=== PATIENT | male | born 1995 | race Caucasian/White ===

== ENCOUNTER 2020-01-02 14:20 | Emergency (ER) | payer OTHER ==
[~2020-01-02] VITALS: Ht 182.9 cm; Wt 81.6 kg
[2020-01-02 14:20] VITALS: BP 143/85
--- NOTE | 2020-01-02 14:21 | NUR ---
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
[2020-01-02] MEDS ORDERED: NALOXONE PFS 2 MG/2 ML SYR ONE (14:22)
[2020-01-02 14:25] VITALS: BP 186/81
--- NOTE | 2020-01-02 14:25 | NUR ---
PT BIB FRIEND FOR OVERDOSE/ALOC. PT WAS FOUND BLUE COLOR ON SKIN AND UNRESPONSIVE OUTSIDE OF THE ER. BIB VIA WC AND POSITION PT IN THE BED IMMEDIATELY. DR. ONTIVEROS PRESENTES TO THE PT RIGHT AWAY AFTER PT WAS BROUGHT IN. 10L OXYGEN VIA NON-REBREATHER MASK GIVEN TO PT. PLACED PT ON MONITOR. PT IS UNRESPONSIVE TO STERNAL RUB OR PAIN STUMILI. SHALLOW BREATHING AND PIN-POINT PUPILS NOTICED; VSS; PATIENT POSITIONED FOR COMFORT; HOB ELEVATED; BEDRAILS UP X2; BED DOWN. ER MD MADE AWARE OF PT STATUS.
--- NOTE | 2020-01-02 14:30 | NUR ---
RESPONSIVE TO NAME BREATH SOUNDS CLEAR GOOD CHEST RISE AND AERATION THROUGHOUT BILATERAL LUNG GONZALEZ NO UPPER AIRWAY SNORE NOTED AT 1421 SATURATION 100% NRB AT 15 LPM HR 100 RR 32
--- NOTE | 2020-01-02 14:39 | NUR ---
PT IS FULLY AWAKE. CAN ANSWER QUESTIONS AND FOLLOW COMMANDS AT THIS TIME.
[2020-01-02 15:07] LABS: BASOPHILS # (AUTO) 0.1 K/uL (0.00-0.22); BASOPHILS % (AUTO) 0.6 % (0.0-2.0); EOSINOPHILS # (AUTO) 0.1 K/uL (0-0.4); HEMATOCRIT 43.6 % (36-52); HEMOGLOBIN 14.5 g/dL (12.0-18.0); LYMPHOCYTES # (AUTO) 4.1 K/uL (2.0-11.5); MEAN CORPUSCULAR HEMOGLOBIN 33 pg (27-31); MEAN CORPUSCULAR HGB CONC 33 g/dL (33-37); MEAN CORPUSCULAR VOLUME 99.3 fL (80-94); MONOCYTES # (AUTO) 0.7 K/uL (0.8-1.0); MONOCYTES % (AUTO) 7.5 % (1.7-9.3); NEUTROPHILS # (AUTO) 4.6 K/uL (1.8-7.7); NEUTROPHILS % (AUTO) 47.9 % (42.2-75.2); PLATELET COUNT (AUTO) 351 K/uL (140-450); RED BLOOD CELL COUNT(AUTO) 4.39 MIL/uL (4.20-6.10); RED CELL DISTRIBUTION WIDTH 14.9 % (11.6-13.7); WHITE BLOOD COUNT (AUTO) 9.6 K/uL (4.8-10.8)
--- NOTE | 2020-01-02 15:15 | NUR ---
PT IS SLEEPING IN THE BED AND ON 2L OXYGEN VIA NASAL CANNULA. VSS. WILL CONTINUE MONITOR PT'S VITAL SIGNS.
[2020-01-02] MEDS: NACL 0.9% 1,000 ML IV ONE (15:17)
[2020-01-02] MEDS: NALOXONE 0.4 MG/ML VIAL IVP ONE (15:17)
[2020-01-02] MEDS: NALOXONE PFS 2 MG/2 ML SYR IVP ONE (15:19)
[2020-01-02 15:22] LABS: ALBUMIN 4.1 g/dL (3.4-5.0); ANION GAP 20.1 (8-16); ASPARTATE AMINOTRANSFERASE 88 U/L (15-37); CARBON DIOXIDE 19.7 mmol/L (21-32); CHLORIDE 102 mmol/L (98-107); CREATININE 1.4 mg/dL (0.6-1.3); GFR ARICAN-AMERICAN 79 mL/min (>90); GLUCOSE 257 mg/dL (74-106); SODIUM SERUM 139 mmol/L (136-145); TOTAL BILIRUBIN 0.5 mg/dL (0.0-1.0); UREA NITROGEN, BLOOD 8 mg/dL (7-18)
[2020-01-02 15:24] LABS: ACETAMINOPHEN < 0.5 ug/ml (10-30); POTASSIUM 2.8 mmol/L (3.5-5.1); SALICYLATE < 2.8 mg/dL (2.8-20.0)
[2020-01-02 15:26] LABS: BARBITURATE, URINE NEGATIVE ng/ml (NEG <=200); BENZODIAZEPINE, URINE NEGATIVE ng/mL (NEG <=200); CANNABINOID, URINE NEGATIVE ng/mL (NEG <=50); COCAINE, URINE POSITIVE ng/mL (NEG <=300); OPIATE, URINE NEGATIVE ng/mL (NEG <=2000); PHENCYCLIDINE SCREEN,URINE NEGATIVE ng/mL (NEG <=25)
[2020-01-02] MEDS: POTASSIUM CHLORIDE 10 MEQ TABER PO ONE ×2 (15:39→17:52)
--- NOTE | 2020-01-02 17:40 | NUR ---
PT IS ASLEEP IN THE BED WITH VSS. WILL CONTINUE MONITORING PT'S VITAL SIGNS.
[2020-01-02 17:53] VITALS: BP 103/51
--- NOTE | 2020-01-02 17:53 | NUR ---
Patient discharged with v/s stable. Written and verbal after care instructions given and explained. Patient verbalized understanding. Ambulatory with steady gait. All questions addressed prior to discharge. Advised to follow up with PMD.
--- NOTE | 2020-01-02 18:55 | NUR ---
Note wally in ED - 01/02/20 at 1858 by MICHAEL Patient will be admitted to care of DR. ALVARADO. Admited to TELE. Will go to room 111A. Belongings list completed. Report to LUCIA OCONNOR.
== END 2020-01-02 17:53 | disposition home or self-care (01) ==
LOC: MED 14:20
DX: T40.2X1A Poisoning by other opioids, accidental (unintentional), initial encounter (principal); F10.129 Alcohol abuse with intoxication, unspecified; R06.03 Acute respiratory distress; Z03.6 Encounter for observation for suspected toxic effect from ingested substance ruled out
CPT/HCPCS: 36415; 80053; 80305; 85025; 96361; 96374; 96375; 99291; G0480; G0482; J2310; J7030